=== PATIENT | female | born 1990 | race Caucasian/White ===

== ENCOUNTER 2019-11-12 09:00 | Outpatient (RCR) | payer BC, SELFPAY ==
--- NOTE | 2019-11-12 09:00 | BH.COMM ---
Communication Note - Communication with Client Communication Note: Met with pt to complete intial paperwork. No significant changes since pre-admission screening. Completed C-SSRS with moderate level of risk. Thougths are primarily passive in the past month with no sucidal thoughts, plan, or intent.
--- NOTE | 2019-11-12 09:05 | BH.SGPN.GN ---
Behaviors/Verbalizations/Mental Status: [] Eye contact is good. Motor activity is appropriate. Appearance is casual. Speech is Appropriate. Mood is depressed. Affect is flat. Thoughts are linear and logical. No evidence of psychosis. Reviewed daily check in sheet and pt reports 3/5 for suicidal thoughts and 0/5 for intent. Pt completed [facility] Screening this AM prior to group. Client Response/Progress/Benefit: [] Pt was an active participant in group discussion regarding conflict management. Emotion for today is jumbled. Daily symptom tracker notes 3/5 for anxiety and agitation and 4/5 for hopelessness. This was pt's first group in IOP. Shared with the group that she is attending IOP due to depression and anxiety impacting her functioning. Notes sleeping to escape and staying in bed most of the day due to depression. Shared some struggles this past weekend with ruminations, people pleasing, and avoidance of conflict. Numerous crying spells over the weekend. Poor quality of life for the past several weeks stating I needed to make some big changes in how I cope with life. No progress noted as this was pt's fist day of IOP. Benefited from group support, encouragement, and feedback. Will continue in IOP to maintain safety, prevent decompensation, and increase healthy coping. Narrative Note: []
--- NOTE | 2019-11-12 10:08 | BH.SGPN.GN ---
Behaviors/Verbalizations/Mental Status: []Client alert and oriented, casually dressed and groomed. Eye contact good. Motor activity appropriate. Speech within normal limits. Affect constricted, mood depressed. Thoughts linear, logical, no signs of hallucinations or delusions. Client Response/Progress/Benefit: []Client was an active participant throughout session, contributing to discussion and attentive. When processing quote client stated I literally only focus on the end goal, so only focus on my failure. Client reported when she doesn't recognize the small steps she is taking towards a goal then she believes she has made no progress. Group worked together to define goals and identify the benefits of developing goals which included: gives hope, feeling accomplished, increase self-esteem, accountability, gives direction, and increases motivation. Worked with group to identify barriers to goals which included: negative thinking, predicting negative outcome, avoidance, self-doubt, fear of failure, and lack of energy. Attentive and contributing during education on developing SMART goals. Benefited from increase awareness of goal-setting methods. Will continue in IOP to stabilize mood, increase healthy coping, and prevent decompensation. Narrative Note: []
--- NOTE | 2019-11-12 11:11 | BH.SGPN.GN ---
Behaviors/Verbalizations/Mental Status: []Client alert and oriented, casually dressed and appropriately groomed. Eye contact fair to good. Motor activity appropriate. Speech within normal limits. Affect flat, dysthymic. Thoughts linear, logical, no signs of hallucinations or delusions. Client Response/Progress/Benefit: []Client attentive throughout, engaged in discussion and completing worksheet. Engaged in creating own mental health SMART goal. Client identified goal as: workout four days this week?. Client reported this goal will benefit her by helping client feel better mentally and physically. Client reported this goal is realistic for her because she is used to working out five days a week. Client identified potential barriers to accomplishing goal to include: being lazy, making excuses, low energy, and lack of time. Client reported she will overcome barriers by using consuming caffeine, switching her workout time to mornings, practicing opposite action, and catching herself making excuses. Client seemed to benefit from identifying a SMART goal and coming up with strategies to overcome potential barriers. Client?s first day in IOP. Client to continue IOP to increase healthy coping skills, increase awareness of distorted thoughts, and prevent decompensation. Narrative Note: []
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
[2019-11-14 10:05] VITALS: BP 100/60; PULSE 56; RESP 16; TEMP 36.6
--- NOTE | 2019-11-14 11:15 | BH.SGPN.GN ---
Behaviors/Verbalizations/Mental Status: []Client alert and oriented, casually dressed and groomed. Eye contact good. Motor activity appropriate. Speech within normal limits. Affect constricted, mood depressed and anxious. Thoughts linear, logical, no signs of hallucinations or delusions. Client Response/Progress/Benefit: []Pt engaged participant in session as evidenced by pt listening attentively to others and providing input at times during session. Pt worked with the group to complete the challenge activity. Pt stated a strategy that can help manage stress is having a set plan on how to address a stressor. Pt actively listening during discussion about the 4 A's of managing stress. Identified she will focus on adapting the way she responds to situations and stressors. Pt stated she also wants to work on accepting the things in life that she cannot control. Pt seemed to benefit from increased awareness of the impact of stress on mental health and increasing repertoire of stress management strategies. Pt to continue in IOP to prevent decompensation, increase healthy coping skills, and challenge distorted thoughts. Narrative Note: []
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
--- NOTE | 2019-11-14 13:42 | BH.DR.ITP ---
Initial Treatment Plan - Patient Information Visit Information: ADMISSION DATE: EXPECTED LOS: 4-6 weeks - Problems/Symptoms Problem #1:: Depression Symptom:: sadness, anhedonia, ruminations, low energy, decreased concentration Problem #2:: ANxiety Symptom:: worry, rumination
--- NOTE | 2019-11-14 15:46 | BH.COMM ---
Communication Note - Communication with Client Communication Note: Pt indicated SI as a 3/5 on daily sx track this morning. This therapist met with pt to further assess for risk. Pt indicated that she has been struggling with passive thoughts of hoping something happens to her that would just end things but firmly expressed I don't have the guts to actually do anything to hurt myself. Denies any active plan or intent. Indicates primary stressor impacting her thoughts as worrying about a friend whom she reports it struggling at the moment. Pt is future orients and indicates ability to maintain safety at this time. Reports willlingness to reach out to crisis resources available should she no longer feel able to keep herself safe. Discussed plans to go to work following group and then workout tonight. Pt will meet with her individual therapist in IOP program on Tuesday.
--- NOTE | 2019-11-16 11:33 | BH.MDN_ITS ---
Multi-Disciplinary Note - Note 45-min Individual Time Started:: 09:05 Date: 11/16/19 Purpose of session/treatment goals addressed:: Purpose of session was to assess pt's current symptoms and stressors. Other topics included education about cognitive triangle, increasing positive self-talk and identifying goals for IOP level of care. Eye Contact:: Good Motor Activity:: Appropriate Appearance:: Neat Speech:: Appropriate Mood:: Depressed Affect:: Congruent Thoughts:: Linear, Logical, No evidence of hallucinations/delusions noted Staff Interventions:: Therapist used open ended questions to elicit pt's current symptoms and stressors. Therapist processed recent stressor of pt's friend being arrested for sexual predatory behavior. Therapist provided psychoeducation about cognitive triangle helping pt see connection between thoughts, emotions and beh aviors. Therapist assisted pt with reframing and challenging negative thoughts. Discussed various strategies to help pt increase positive thought patterns. Therapist provided support by using active listening and validating emotions. Client Response:: Pt reported she has been struggling since finding out her best friend was arrested earlier this week in a sexual predator police sting. Pt stated she kind of feels numb to the situation and hasn't really processed it. Pt reported she can't believe that her friend would do something like that. Pt stated she keeps hearing about the story from various people since the event is in the newspaper. Pt shared she is struggling on if she should be supportive to her friend if he reaches out because doesn't want him to feel like he is alone, but also isn't okay with his choices. Through further processing pt recognizes it's important to focus on taking care of herself so she can feel better equiped to manage this stressor. Pt reported she feels comfortable in a depressed state so listened to sad music yesterday which she recognizes maintained her sadness. Pt connected with education about cognitive triangle. Pt recognized her behavior can maintain her depressed symptoms and lead to self-fulfilling prophecy. Pt stated her biggest problem is I hate myself more than anything. Pt reported she struggles with identifying and believe positive statements about herself. Pt admitted she doesn't put into practice her coping skills or saying positive self-statements to herself very often. Pt agreeable to do a self check-in at least 4 times a day in which she will say 5 positives about herself and 3 positives from her day so far. Risks/Concerns:: Pt states passive thoughts of most days, but denies suicidal intention or plan. Pt agreeable to call 911 or go to nearest emergency room if feels unable to maintain safety. Progress Toward Goals/Plan:: No progress observed given it is pt's first week in the program. Session focused on establishing goals for IOP level of care. Pt to continue IOP to decrease negative thoughts, increase healthy coping and prevent decompensation. Time Stopped:: 09:45
--- NOTE | 2019-11-16 20:55 | BH.MTP_ITS ---
Master Treatment Plan - Patient Information Program Physician:: Dr. Chowdhury Primary Therapist:: Mariana Connor, [facility] - Psychiatric Diagnoses Psychiatric Diagnoses:: Major depressive disorder recurrent severe without psychosis; generalized anxiety disorder; Cluster B and avoidant traits Diagnosis Code(s):: F 33.2 - Estimated LOS Estimated LOS (in weeks):: 6 Problem/Goal #1 - Problem/Goal #1 Stated Goal:: Client will reduce depression, feelings of hopelessness, and suicidal ideation due to Major Depressive Disorder through Intensive Outpatient Program. Description of Barriers: Pt's distorted thoughts, negative self-talk, poor self- esteem, passive thoughts of , and limited social support. Functional Impact: Pt endorses decreased energy, decreased concentration and memory and a lethargic mood, worthlessness, hopelessness, crying and sadness. Pt mental health impacts her ability to form social connections. Pt has chronic suicidal thoughts. Depressed symptoms increase pt's focus on the negative which impacts daily enjoyment and increases daily stressors. Goal Relevant Strengths/Supports: Pt is intelligent and verbalizes motivation to get better. - Objectives Objective #1 Stated Objective: Identify 2-3 thoughts or behaviors that reinforce depressive symptoms and replace negative thoughts with more rational thinking. Interventions: Therapist will help client identify distorted thinking that triggers or reinforces depressive state. Therapist will provide client with resources to help guide in replace trigger thoughts or behaviors. Discharge Criteria: Client will have met this goal when she can verbalize at least 2 thoughts or behaviors that reinforce depressive episode, identify rational response to replace those thoughts, and effectively be able to defeat suicidal ideation. Target Date: 12/24/19 Review Date: 12/10/19 Objective #2 Stated Objective: Pt will decrease depressive symptoms AEB pt?s score on the DSM 5 cross-cutting measure and improve pt?s daily functioning. Interventions: Through groups and individual therapy, pt will be provided with education on cognitive distortions, mistaken beliefs, and identifying and combating negative self-talk. Therapist will assist pt with getting back into the activities she once enjoyed as well as increasing healthy coping strategies. Discharge Criteria: Pt will have met this goal when pt?s score on the DSM 5 cross cutting measure for depression has been decreased and per pt?s report daily functioning has improved. Target Date: 12/24/19 Review Date: 12/10/19 Problem/Goal #2 - Problem/Goal #2 Stated Goal:: Stabilize anxiety level while increasing ability to function on daily basis. Description of Barriers: Pt's distorted thoughts, negative self-talk, poor self- esteem, passive thoughts of , and limited social support. Functional Impact: Pt endorses decreased energy, decreased concentration and memory and a lethargic mood, worthlessness, hopelessness, crying and sadness. Pt mental health impacts her ability to form social connections. Pt has chronic suicidal thoughts. Depressed symptoms increase pt's focus on the negative which impacts daily enjoyment and increases daily stressors. Goal Relevant Strengths/Supports: Pt is intelligent and verbalizes motivation to get better. - Objectives Objective #1 Stated Objective: Client will learn and utilize 2-3 healthy coping strategies to manage anxious symptoms. Interventions: Therapist will assist client in learning internal coping strategies to manage anxious symptoms, along with helping client identify triggers. Discharge Criteria: Client will have achieved this goal when can consistently utilize at least 2 healthy coping strategies to manage anxious symptoms. Target Date: 12/24/19 Review Date: 12/10/19 Objective #2 Stated Objective: Pt will decrease anxious symptoms AEB pt?s score on the DSM 5 cross-cutting measure improve pt?s daily functioning. Interventions: Through groups and individual therapy, pt will be provided education about anxiety?s impact on body and common physiological reaction to anxiety. Therapist will teach pt appropriate breathing techniques and build healthy coping skills to manage daily anxieties. Discharge Criteria: Pt will have met this goal when pt?s score on the DSM 5 cross cutting measure for anxiety has been decreased and per pt?s report daily functioning has improved. Target Date: 12/24/19 Review Date: 12/10/19
--- NOTE | 2019-11-16 20:56 | BH.PSA_ITS ---
Source of Information - Presenting Problems/Circumstances Problems, Referral Source, Mental Status, Client: Pt has a history of major depressive disorder and anxiety who was referred by her counselor due to worsening symptoms and limited progress. She describes having decreased energy, decreased concentration and memory and a lethargic mood. She endorses worthlessness, hopelessness, crying and sadness. She describes her mood as indifferent and blah. She has passive thoughts of suicide only. She denies any plan. She denies active SI. Psychiatric Presentation - Psych Issues & Need for Admission Psychiatric Issues:: Hx of depression and anxiety. Past Psychiatric History - MH Treatment Hx Treatment History: Pt first sought counseling when she was 19 years old for a couple of years. Pt has been seeing current counselor for 2 1/2 years. Pt first started taking psychiatric medications in high school. First hospitalization:: none Medication Trials:: Yes ECT Therapy:: No Age of first mental health symptoms: Pt first noticed mental health symptoms in high school. Development & Family of Origin - Childhood Significant Childhood Events: Pt describes her childhood as pretty happy. - Family Who currently lives in your home?: Pt lives with her parents. Describe family composition:: Pt reports healthy relationship with her parents and is not very close with her younger brother. - Family History Family Hx of Psychiatric or AOD Problems: Mom has anxiety. Brother has OCD. Ethnicity - Culture Do you identify yourself with any particular cultural, ethnic background, or community?: No - Sexuality Sexual Orientation: Heterosexual Mental Status - Memory Recent Memory: Fair Remote Memory: Fair - Concentration Concentration: Poor - Eye Contact Eye Contact: Fair - Speech Speech: Articulate - Thought Process Thought Process: Logical, Ruminations Insight: Fair Judgment: Fair Behavior: Anxious - Orientation Orientation: Time, Person, Place, Situation - Appearance Appearance: Appropriate - Mood Mood: Anxious, Depressed - Affect Affect: Constricted Suicide Assessment - Suicidal Ideation Have you ever felt like hurting yourself?: Yes Were you using ETOH/drugs at the time?: No Suicidal Intentional Rating Scale (SIRS): Current suicidal thoughts/No plan/Contracts for safety - Pt has a history of one suicide attempt at age 18 where she overdosed on Vicodin but vomited and did not tell anyone about this. Pt has chronic passive thoughts of wanting to be and believing she would be better off . Pt denies suicidal plan or intention to date. Physician Notification: If Active suicidal thoughts/Will not contract for safety is checked, contact physician and document in the Physician Notification section below. Violent Behavior/Abuse History - Homicidal Ideation Do you have any homicidal thoughts? If so, explain:: No Is there a known potential victim? If yes, who:: No - Abuse Have you ever been abused?: No - Safety Do you ever feel threatened in your home? If yes, describe:: No Adult Social History - Age 20 to Present Describe your current support system:: limited social support. Substance Use - Substance Substance Use Type: Alcohol - Pt states she drinks about 3 drinks a week. - IV Substance Use Do you have a history of IV use?: denies. Education & Occupational Histo - Education What is your level of education?: Bachelor Degree - communications - Occupation List any current or past employment:: Pt states she currently works in [employer] at her current job. Service - Service Have you ever been in the ?: No Legal History - Records Have you had any past legal charges?: No Do you have any current legal charges?: No Have you ever been incarcerated? If yes, describe:: No - Court Orders Have you had any past court orders for psychiatric treatment?: No Do you have a present court order for psychiatric treatment?: No Problem Checklist - Current Problem Areas Problem List: Depressed mood/sad, Anxiety, Inattention, Sleep problems, Additional psychosocial stressors - Pt's negative body image is significant source of stress. Diagnoses - Diagnoses Diagnosis #1:: F 33.2 Major Depressive Disorder, recurrent severe without psychosis Diagnosis #2:: JIM Interpretive Summary - Interpretive Summary Interpretive Summary: Patient is a 29-year-old single female with a history of major depressive disorder and anxiety who was referred by her counselor due to worsening symptoms and limited progress. She describes having decreased energy, decreased concentration and memory and a lethargic mood. She says she noticed she was making suicidal jokes. Last year she had daily headaches for about 7 months and due to extensive medication trials and infusions the headaches have now resolved but the depression remains. She says she feels the depression was triggered by having daily migraine headaches. But now persists and she feels down about her weight. She endorses worthlessness, hopelessness, crying and sadness. She describes her mood as indifferent and blah. Her biggest stress now is work and she is looking for a new job. She is having trouble motivating herself to get things done. She describes herself as having low self-esteem and high expectations of self. Pt endorses anhedonia, increased help, low energy, and inappropriate guilt. She has a history of self- harm the most recent time was 5 years ago and denies any self-harm recently. Pt has passive thoughts of suicide only. She denies any plan. She denies active SI. She denies homicidal ideation, hallucinations, delusions, or any symptoms of robina. She is a worrier by nature and is worried now about her future and about money. She had one panic attack last year and none since. She denies a history of OCD, eating disorder, trauma or PTSD. Treatment Plan Recommendations - Recommendations Guidelines: Special needs identified to be included in the development of an individualized treatment plan regarding past psychiatric history and treatment, developmental events, family relationships/events/culture, past and/or current educational, occupational, social, and residential experience, and legal status. Recommendations:: Pt recommended IOP level of care due to worsening depression, chronic suicidal thoughts, and limited progress with lower level of care.
--- NOTE | 2019-11-19 09:05 | BH.SGPN.GN ---
Behaviors/Verbalizations/Mental Status: []Client alert and oriented, neatly dressed and groomed. Eye contact good. Motor activity appropriate. Speech within normal limits. Affect constricted, mood anxious. Thoughts linear, logical, no signs of hallucinations or delusions. Reviewed client?s symptom tracker, client was 2/5 for thoughts of suicide and 0/5 for intent. This appears to be client's baseline. Future oriented. Client Response/Progress/Benefit: []Client responded well to session, participating and engaged. Client reports feeling happy but anxious about maintenance today. Client shared she had a good weekend and reported I got out of bed before 11 each day. Client acknowledged this is progress because she has been struggling with getting out of bed. Client also read an entire book this weekend and went to a musical. Client had not been able to focus or find enjoyment in things, so she is happy about this mental health win. Client's stressor today is that she did not workout like she wanted to this weekend. Client was encouraged to practice self-compassion as she still accomplished many goals this weekend. Appeared to benefit from reflecting on her gains and practicing self-compassion. Will continue IOP tx to prevent decompensation, challenge distortions, and improve overall functioning. Narrative Note: []
--- NOTE | 2019-11-19 11:18 | BH.SGPN.GN ---
Behaviors/Verbalizations/Mental Status: []Client alert and oriented, casually dressed and groomed. Eye contact good. Motor activity appropriate. Speech within normal limits. Affect congruent, mood anxious, depressed. Thoughts linear, logical, no signs of hallucinations or delusions. Client Response/Progress/Benefit: []Client?engaged during session AEB client providing contributions throughout group session, giving feedback to fellow participants, and engaging in thought challenging activity. Client acknowledged the importance of needing to have awareness and put forth the effort to challenge, reframe, and replace distorted thought patterns. Shared that she has been working with her outpatient therapist on this and that it has taken a lot of practice to make progress. Shared she continues to struggle at times. Client worked cooperatively with group to challenge example distorted thought and was attentive in learning strategies to combat distortions. Client reported connecting with distortion of emotional reasoning and personalization most and identified a distorted thought she will practice reframing. Client seemed to benefit from increased awareness of cognitive distortions and practicing reframing distorted thoughts. Client to continue IOP level of care to challenge negative thoughts, continue use of healthy coping and prevent decompensation. Narrative Note: []
--- NOTE | 2019-11-21 09:10 | BH.SGPN.GN ---
Behaviors/Verbalizations/Mental Status: [] Eye contact is good. Motor activity is appropriate. Appearance is casual. Speech is Appropriate. Mood is depressed. Affect is flat. Thoughts are linear and logical. No evidence of psychosis. Reviewed daily check in sheet and pt reports 2/5 for suicidal thoughts and 0/5 for intent. Has been baseline for pt since entering IOP Client Response/Progress/Benefit: [] Pt spoke when prompted. She choose not to share today in group stating I'm struggling with over-analyzing. Group was support and she elaborated a little more however not much. Benefited from group support and encouragement. Will continue in IOP to maintain safety, prevent decompensation, increase healthy coping, and increase functioning. Daily symptom tracker notes 3/5 for anxiety, 4/5 for hopelessness, and 2/5 for agitation. Narrative Note: []
--- NOTE | 2019-11-21 10:10 | BH.SGPN.GN ---
Addendum entered and electronically signed by Dee Dyer LSW 11/22/19 08:22: Pt was a semi-active participant in activity as evidenced by pt providing some input throughout, though mostly remained passive. She attentively listened to others. Group worked together to come up with common negative forces in their lives which can hold them back from growth. Negative forces included: mental illness, negative thoughts, other people?s opinion and behaviors, not managing emotions, and poor choices. Group then worked together to identify common positive forces which help us grow. Theses included: Healthy coping skills, positive support, self-care, positive self-talk and opposite action, and weighing pros/cons of choices. Pt reported she believes personal growth is a choice because we decide whether to do things that will result in growth such as set boundaries or challenge thoughts. Pt was attentive during psychoeducation on the importance of utilizing many aspects of positive forces to help one grow. Benefited from group with increased insight and awareness on the impact of negative and positive forces on mental wellness. Recommended continued tx to reduce mental health sx severity, increase positive change behaviors, and prevent decompensation. Original Note: Behaviors/Verbalizations/Mental Status: []Client alert and oriented, casually dressed and groomed. Eye contact good. Motor activity appropriate. Speech within normal limits. Affect congruent, mood depressed and anxious. Thoughts linear, logical, no signs of hallucinations or delusions. Client Response/Progress/Benefit: [] Narrative Note: []
--- NOTE | 2019-11-21 11:20 | BH.SGPN.GN ---
Behaviors/Verbalizations/Mental Status: []Client alert and oriented, casually dressed and groomed. Eye contact fair. Motor activity appropriate. Speech within normal limits. Affect flat, mood agitated and depressed. Thoughts linear, logical, no signs of hallucinations or delusions. Client Response/Progress/Benefit: []Client passive participant AEB pt providing limited input during discussion and when did share input it tended to be focused on the negative. Client completed worksheet identifying her positive and negative forces in life. Client chose not to share her negative and positive forces with the group. Client stated she will focus on decreasing negative view of life by keep track of positive moments throughout her day instead of just focusing on what isn't going well. Client progress could be hindered if pt continues to only focus on negative and not utilizing skills to improve mood when feeling agitated and apathetic. Client to continue IOP level of care to increase healthy coping, challenge negative thoughts and prevent decompensation. Narrative Note: []
--- NOTE | 2019-11-22 09:07 | BH.SGPN.GN ---
Behaviors/Verbalizations/Mental Status: []Eye contact is good. Motor activity is appropriate. Appearance is casual, grooming appropriate. Speech is Appropriate rate and soft tone. Mood is dysthymic. Affect is constricted. Thoughts are linear and logical. No evidence of psychosis. Reviewed daily check in sheet and pt indicates a 2/5, with 5 being severe, for suicidal thoughts and a 0/5 for suicidal intention. Pt's baseline is a 2/5 for suicidal ideation. Pt does not present as imminent risk to harm self or others. Client Response/Progress/Benefit: []Client responded well to session as evidenced by her list intentionally to others and openly sharing thoughts and feelings. Client identified current emotion as hopeful. Client identified mental health positive as not flipping out at work yesterday when was having difficulty with several projects. Client stated she used self-talk to help her stay calm. client reported another mental health positive was attending IOP yesterday and getting through the rest of the day despite feeling apathetic and easily agitated. Client identified current stressor is her health because her migraines have starting to come back and she doesn't understand why. Client progress is variable, her mood is often determined by her external environment. Client to continue IOP to increase consistent use of healthy coping, increase positive thought patterns, and prevent decompensation. Narrative Note: []
--- NOTE | 2019-11-22 10:12 | BH.SGPN.GN ---
Behaviors/Verbalizations/Mental Status: []Client alert and oriented, casually dressed and groomed. Eye contact good. Motor activity appropriate. Speech within normal limits. Affect congruent, mood depressed and anxious. Thoughts linear, logical, no signs of hallucinations or delusions. Client Response/Progress/Benefit: []Pt active participant as shown by contribution to discussion and increased ability to provide insight to group. Pt shared that self-care is important but can be difficult to prioritize when we put other?s needs first or fear being viewed as selfish. Pt helped the group discuss benefits of self-care and expressed connecting to idea of self-care as preventative. Benefits included; improved relationships, maintaining stability, less stress, better perspective, and improved mood. Pt participated in the discussion of the common myths about self-care including self-care is selfish, always fun, too much effort and time, and we don?t deserve it. Client participated in the discussion on debunking of these myths, and took on an active role during discussion. Group stated that everyone is worthy of self-care and by practicing self-care daily, it can prevent avoidable additional stressors. Client seemed to benefit from increased awareness of the importance of self-care and challenging common myths that prevent clients from practicing self-care. Client showing variable progress as shown by client?s report of insight into what helps and hinders mental health progress, but struggles with application of skills identified. Will continue IOP tx to promote gains, further improve healthy skill application, as well as prevent decompensation. Narrative Note: []
--- NOTE | 2019-11-22 11:15 | BH.SGPN.GN ---
Behaviors/Verbalizations/Mental Status: []Client alert and oriented, neatly dressed and groomed. Eye contact good. Motor activity appropriate. Speech within normal limits. Affect constricted, mood anxious. Thoughts linear, logical, no signs of hallucinations or delusions. Client Response/Progress/Benefit: []Client receptive of session, actively listening and contributing to discussion. Participated as the group further processed the activity and connected that maintaining self-care requires balancing life stressors and making oneself a priority. Client shared it is important to remember that making time for self-care may bother others ?but that?s not our responsibility.? Willing to complete worksheet activity and helped the group identify self-care activities. Client completed self-assessment activity on the different areas of self-care and was able to identify current practices she uses and identify areas she can improve upon. Client reported she can improve her spiritual self-care area. Client set a goal to improve in the area of spiritual self-care. Client?s goal is to try out some meditation and practicing calming strategies. Client shared ?my mind is always racing, so I need to teach it to be calm.? Client appeared to benefit from increasing awareness of how she can improve her self-care balance. Progress noted as shown by client?s increased self-awareness and understanding of negative thinking. Will continue IOP tx to combat dichotomous thinking and reduce depressive symptoms. Narrative Note: []
--- NOTE | 2019-11-22 20:51 | BH.MDN ---
Multi-Disciplinary Note - Note 60-min Individual Date: 11/22/19
--- NOTE | 2019-11-26 09:04 | BH.SGPN.GN ---
Behaviors/Verbalizations/Mental Status: []Eye contact is good. Motor activity is appropriate. Appearance is casual. Speech is WNL. Mood is anxious, dysthymic. Affect is congruent. Thoughts are linear and logical. No evidence of psychosis. Reviewed daily check in sheet and reports 1/5 for suicidal ideations, denies intent. This is consistent with pt baseline. Client Response/Progress/Benefit: []Pt responded well to session, engaged throughout and willing to process with group. Reports emotion for the day as ?anxious? and indicated that this is due to struggling to differentiate between self-care and avoidance. Pt identified current mental health wins as being able to reframe a setback and learn from it rather than ruminate on where she felt she had failed. Shared practicing applying components of self-compassion. Pt noted that reflecting upon knowing when she needs a break vs. when she is beginning to isolate is her ongoing stressor. Open to discussion on asking herself why she desires to do the behavior as a means for differentiating. Additional win identified as challenging negative thoughts about not working out this morning and instead pt told herself that she would be able to do so after work this afternoon. Benefited from support of the group. Progress noted in pt self-report of improved ability to engage in self-care, though continues to report distorted thinking patterns which impacts progress. Recommended continued IOP tx to maintain gains, promote ongoing tx goal progress and implementation of thought challenging, and reduce overall mental health sx severity. Narrative Note: []
--- NOTE | 2019-11-26 10:15 | BH.SGPN.GN ---
Behaviors/Verbalizations/Mental Status: []Eye contact is good. Motor activity is appropriate. Appearance is casual. Speech is Appropriate. Mood is dysthymic. Affect is constricted. Thoughts are linear and logical. No evidence of psychosis. Client Response/Progress/Benefit: []Pt was an active participant AEB pt providing input during discussion, engaged in activity and listened attentively to others. Pt connected with quote that it's easier to stay with what's comfortable even when know it's not healthy. Pt stated an example of something that would be hard to change is moving jobs. Worked with peers to identify and define pitfalls in mental health. Attentive on psycho-education on the impact of how one tr with or manages pitfalls in regards to mental health. Group worked together to identify what keeps us stuck or vulnerable to pitfalls which included; loss of motivation, fear of unknown, anxiety, unhealthy coping, self-sabotage, self-fulfilling prophecy, impatience, and self-doubt. Pt stated self-fulfilling prophecy is a pitfall that can keep her stuck. Pt gave example that if she tells herself she is going to fail it typically leads her to failing which reinforces negative thought that she was going to fail. Benefited from increased awareness on the impact that pitfalls can have on mental health. Narrative Note: []
--- NOTE | 2019-11-26 11:16 | BH.SGPN.GN ---
Behaviors/Verbalizations/Mental Status: []Client alert and oriented, neat appearance. Eye contact good. Motor activity appropriate. Speech within normal limits. Affect constricted, mood anxious. Thoughts linear, logical, no signs of hallucinations or delusions. Client Response/Progress/Benefit: []Client receptive of session, engaged throughout AEB client taking notes and participating in discussion. Processed activity with group and connected it to overcoming personal pitfalls in life. Client completed a worksheet where she identified personal pitfalls impacting mental health progress. Identified pitfalls as: unjustified guilt, saying yes when she means no, doing things for others but not herself, pride, and difficulty asking for help. Client shared I have a pride problem...I think I should be able to do everything alone.Client recognized that with awareness and use of healthy coping skills, it is possible to prevent or better manage pitfalls. Attentive and contributing during psychoeducation on strategies to overcome pitfalls. Client stated she will work on preventing pitfalls by practicing acceptance of the discomfort of asking for help and reminding herself that it's okay . Benefited from identifying personal pitfalls and strategies to overcome these pitfalls.Progress noted in client's increased receptiveness to coping skills and challenging her negative thoughts. Will continue IOP tx as client continues to struggle with unrealistic expectations and mood instability. Narrative Note: []
--- NOTE | 2019-11-28 09:04 | BH.SGPN.GN ---
Behaviors/Verbalizations/Mental Status: []Pt alert and orient x3. Eye contact good. Motor activity is appropriate. Appearance is casual. Speech is Appropriate. Mood is dysthymic. Affect is congruent. Thoughts are linear and logical. No evidence of psychosis. Reviewed daily check in sheet and no reports of suicidal ideations or intent. Client Response/Progress/Benefit: []Pt responded well to session, engaged throughout discussion and willing to process with group. Reports emotion for the day as ?content? and indicated that this is due to beginning to see improvement in her overall mood. Pt identified current mental health win as being able to go the entire previous date and this morning without experiencing any passive thoughts of . Attributes this to increased application of positive self-talk. Additional win identified as doing well to remind herself of the positives within the workplace in order to reduce negative thinking patterns related to her job. Benefited from support of the group and identifying areas in which she has made improvement. Current stressor continues to be trying to stay positive within her work environment. Progress noted in pt self-report of improved mood and increased use of self-talk skills. Recommended continued IOP tx to maintain gains, promote ongoing tx goal progress and implementation of thought challenging, and reduce overall mental health sx severity. Narrative Note: []
--- NOTE | 2019-11-28 10:18 | BH.SGPN.GN ---
Behaviors/Verbalizations/Mental Status: []Client alert and oriented, neatly dressed and groomed. Eye contact good. Motor activity appropriate. Speech within normal limits. Affect congruent, mood euthymic. Thoughts linear, logical, no signs of hallucinations or delusions. Client Response/Progress/Benefit: []Client was an active participant AEB engagement in group activity and providing good input during discussion. Client worked with group to define resilience, sharing that to her being resilient means adapting and having flexible thinking. Client stated, ?it takes a lot of strength to shift your thinking.? Client able to make connections between activity and barriers/supports to the development of a resilient lifestyle. Client agreed with peers that one can learn to become more resilient throughout life and reported ?resisting change is ignorant.? Client able to work with group to discuss benefits of resilience on mental health which included; better management of mental health symptoms, increased healthy coping skills, increased confidence, less fear of stressors, and personal growth. Progress noted as shown by client?s report of reduced suicidal ideations since admission and increased ability to challenge negative thoughts. Recommended continued IOP tx to promote healthy change behaviors and further decrease negative thinking that reinforces depression and anxiety. Narrative Note: []
--- NOTE | 2019-11-28 12:00 | BH.COMM ---
Communication Note - Communication with Client Communication Note: Client reports hand tremors, this nurse discussed same with client. Client states hand tremors started after she started taking her Wellbutrin which was prescribed 2 weeks ago. 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 Client denies caffiene use. Discussed hand tremors with Dr. Chowdhury. Dr. Chowdhury states client can stop taking Wellbutrin if tremors bothersome and she will see her next week to discuss. Client states she is going to stop taking Wellbutrin.
--- NOTE | 2019-11-29 09:05 | BH.SGPN.GN ---
Behaviors/Verbalizations/Mental Status: [] Eye contact is good. Motor activity is appropriate. Appearance is neat. Speech is Appropriate. Mood is depressed. Affect is flat. Thoughts are linear and logical. No evidence of psychosis. Reviewed daily check in sheet and pt reports 1/5 for suicidal thoughts and 0/5 for intent. This is below baseline for pt. Client Response/Progress/Benefit: [] Pt was an active participant in group discussion. Emotion for today is tired. Daily symptom tracker notes 4/5 for anxiety, 3/5 for panic/hopelessness, and 2/5 for agitation. Shared that she was emotionally exhausted yesterday. Spending a great deal of time asking herself why she feels depressed noting that she had a good childhood, no trauma, and for the most part her life is OK. Discussed how she has a strong desire and need to find out the reasons for her depression. Group provided feedback and discussed radical acceptance giving examples of situations that we may never find the cause or reason for. Pt able to identify this need as an obstacle and group provided feedback on strategies on radical acceptance. Progress noted. Benefited from group support, encouragement, and feedback. Will continue in IOP to maintain safety, increase healthy coping, and prevent decompensation. Narrative Note: []
--- NOTE | 2019-11-29 10:06 | BH.SGPN.GN ---
Behaviors/Verbalizations/Mental Status: []Client alert and oriented, casually dressed and groomed. Eye contact good. Motor activity appropriate. Speech within normal limits. Affect congruent, mood anxious, dysthymic. Thoughts linear, logical, no signs of hallucinations or delusions. Client Response/Progress/Benefit: []Client responded well to session, attentive and providing input to discussion. Group identified the benefits to setting boundaries as well as the consequences of not setting healthy boundaries. Client shared she knows setting boundaries is important but she struggles with compromising her own boundaries when asked by others. Provided an example of continuing to give money after setting a boundary about doing so. Participated in the discussion of benefits of setting boundaries which included; increased confidence, better relationships, needs being met, safety, and preventing burnout. Group identified the barriers that keep one from setting healthy boundaries which included fear of others reaction, low self-esteem, past experiences, lack of awareness, and lack of communication. Client engaged during discussion of the different types of boundaries and able to identify the benefits of each. Client shared she struggles to set material and time boundaries which leads to feeling overwhelmed and taken advantage of. Client seemed to benefit from increased awareness of how poor boundaries can negatively impact mental health. Progress noted as client has been able to share increased insight into her own mental health and reports reduced suicidal ideation as well. Will continue IOP tx to prevent decompensation, improve emotional regulation, and reduce mental health sx. Narrative Note: []
--- NOTE | 2019-11-29 11:11 | BH.SGPN.GN ---
Behaviors/Verbalizations/Mental Status: []Client alert and oriented, casual dress, hygiene appropriate. Eye contact good. Motor activity appropriate. Speech within normal limits. Affect congruent, mood dysthymic, anxious. Thoughts linear, logical, no signs of hallucinations or delusions. Client Response/Progress/Benefit: []Pt responded well to session, active participant and willing to provide insight throughout. Pt did well to engage in the boundary self-assessment activity and worked with group to further process. Pt discussed that she often struggles with feeling able to say ?no? to others on a consistent basis and often gives in to avoid conflict when pushed. Noted that she tends to prioritize avoiding conflict over setting boundaries despite knowing that it is going to impact her mental health. Identified she would like to improve her ability to set healthy time boundaries by trying to implement concept of ?habit stacking? as well as practice saying ?no? to others when needing to prioritize herself. Appeared to benefit from group discussion on strategies for further improving personal boundaries. Progress noted in pt ability to identify impact of current boundaries on mental health progress and relationships. Pt to continue IOP tx to maintain stability, decrease mental health sx severity, and continue to promote healthy change behaviors. Narrative Note: []
--- NOTE | 2019-12-03 11:20 | BH.SGPN.GN ---
Behaviors/Verbalizations/Mental Status: []Client alert and oriented, neatly dressed and groomed. Eye contact good. Motor activity appropriate. Speech within normal limits. Affect flat, mood depressed, irritable. Thoughts linear, logical, no signs of hallucinations or delusions. Client Response/Progress/Benefit: []Client responded well to session, quiet, but participating when prompted. Group discussed the mental health benefits of recognizing strengths which included; improved self-esteem, better coping skills, and improved mood. Client shared she struggles with identifying her strengths at times because some hurt my mental health. Client gave the example of how being forgiving has burned me too many times. Receptive to feedback from peers on boundary setting and self-love. Client able to identify personal strengths she possesses which included; sense of humor, being adventurous, love of learning, and empathy. Client stated her strengths help her cope more effectively and practice self-care. Group discussed strategies to build and improve strengths which included; practicing self-compassion, affirmations, applying strengths or ?use them,? self-care, and keeping track of wins. Appeared to benefit from recognizing personal strengths and identifying strategies to improve strengths. Progress noted as client has been reporting reduced isolation, but she continues to struggle with negative thinking that reinforces depression. Will continue IOP tx to reduce negative thinking and improve mood stability. Narrative Note: []
--- NOTE | 2019-12-05 09:03 | BH.SGPN.GN ---
Behaviors/Verbalizations/Mental Status: []Pt eye contact fair, casually dressed, motor activity appropriate, speech normal rate and tone, mood depressed, flat affect, thoughts linear and intact, no evidence of delusions or hallucinations. Reviewed client?s symptom tracker pt indicated a 1/5, with 5 being severe, for suicidal thoughts and a 0/5 for suicidal intention. Pt's baseline is a 1/5 for suicidal thoughts. Pt does not appear to be at imminent risk to harm self or others. Client Response/Progress/Benefit: []Pt listened attentively to others, needed encouragement to share own thoughts and feelings. Pt struggled with identifying any mental health positives. Pt discounted getting to IOP consistently as a positive because that's easy. 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 Pt reported current stressor is life. With coaching pt identified more specifically her health and medical bills. Pt progress stagnant as evidenced by pt continuing to report depressed symptoms, negative thinking and not consistently applying coping skills and strategies. pt recognizes negative mindset reinforces depressed state, but doesn't apply thought challenge techniques consistently. Pt to continue IOP to increase consistent application of healthy coping skills, challenge negative thoughts and prevent decompensation. Narrative Note: []
--- NOTE | 2019-12-05 10:10 | BH.SGPN.GN ---
Behaviors/Verbalizations/Mental Status: []Client alert and oriented, casually dressed and groomed. Eye contact good. Motor activity appropriate. Speech within normal limits. Affect constricted, mood depressed, anxious. Thoughts linear, logical, no signs of hallucinations or delusions. Client Response/Progress/Benefit: []Client a passive participant during group AEB client contributing little input to discussion, though able to make connections throughout. Client agreed with group that it is important to have a variety of social supports. Client listened as group brainstorm potential consequences of not having a support system and barriers to developing social supports, which included: feeling like a burden, not using internal skills, procrastinating, minimizing sx, and poor communication. Group identified benefits of social support as increased confidence, having someone to talk to, reducing overall responsibilities, less stress, and improved relationships. Appeared to benefit from gaining awareness of barriers that keep people from seeking social support as well as identifying the benefits of increasing support. Client progress variable due to inconsistent skill application. Recommended continued IOP tx to prevent decompensation, continue to promote healthy skill application, and improve healthy social support outlets. Narrative Note: []
--- NOTE | 2019-12-05 11:10 | BH.SGPN.GN ---
Behaviors/Verbalizations/Mental Status: []Client alert and oriented, neatly dressed and groomed. Eye contact good. Motor activity appropriate. Speech within normal limits. Affect constricted, mood depressed. Thoughts linear, logical, no signs of hallucinations or delusions. Client Response/Progress/Benefit: []client active participant AEB client contributing to discussion and listened attentively to others. Client worked with the group to make connections between barriers faced in the challenge activity and strategies for managing these barriers with utilizing social supports in daily life. Client reported using specific communication helped her group be successful. Client participated in small group discussion about the different types of support and benefits different types of support can provide. Client identified she would like to increase her spiritual supports. Client shared this will help client feel less stressed and decrease her racing thoughts. Client identified steps she can take to improve this support to be meditating throughout the week and spending more time outdoors. Client reported she meditated before bed the other day and it helped her fall asleep while quieting her mind. Client seemed to benefit from identifying a type of support she would like to improve upon and identifying small steps to take. Progress noted as shown by client's improved participation today, but she continues to struggle with challenging distortions. Will continue IOP tx to reduce self-sabotaging behaviors, improve self-talk, and reduce depression. Narrative Note: []
--- NOTE | 2019-12-05 11:22 | PCM.BH.PN_ITS ---
Progress Note Progress Note: History of Present Illness/Interim History: [] Patient is a 29-year-old single female with a history of depression and anxiety who is seen in follow- up at the [facility] behavioral health IOP program. The patient had been started on Wellbutrin a few weeks ago and this gave her significant tremors so this medicine was discontinued around November 28, 2019. She states today that her mood remains depressed and possibly a little more depressed than it was a few weeks ago. She is still having decreased energy, decreased concentration, worthlessness, crying and sadness. She is trying to keep a regular wake hours now so she is not sleeping as much during the day as she was before. She denies any urges to any type of self-harm. She does continue to have passive thoughts with of suicide which are fleeting and not active. She has no plan. She denies any homicidal ideation, hallucinations, delusions or any symptoms of robina. She continues to worry about her future and about money. Current Psychiatric Medications: [] Paxil 20 mg p.o. daily (for the past 9 years at same dose); Wellbutrin XL 150 mg taken for 1 or 2 days but discontinued November 28. Mental Status Examination: [] Patient is a 29-year-old single female who appears normal for stated age. She is casually dressed and groomed with good hygiene. She has good eye contact and speech is normal rate and rhythm with no pressure. She has no psychomotor agitation or retardation. She has depressed mood and somewhat flat and constricted affect. Thought process is goal-directed and organized. Thought content: There is evidence of passive suicidal ideation. There is no evidence of a plan or active suicidal ideation. No evidence of homicidal ideation, hallucinations or delusions. Judgment is intact. Insight: Some present. Impulsivity: Low to moderate. Diagnoses: [] Standish I: [] Major depressive disorder recurrent severe without psychosis; generalized anxiety disorder Standish II: [] Cluster B and avoidant traits Standish III: [] Migraine headaches Standish IV:[]] Work and primary support issues Plan: [] Patient will continue the IOP program as the structure, support, education, group and individual therapy will hopefully prevent worsening of the patient's symptoms which might require hospitalization. The risk, options, possible complications of medications were discussed with the patient and she understands and accepts these. Discussed again that she should use control and not become while taking valproic acid for her headaches. Patient was given several options for her medications. Option 1 was to increase the Paxil. Option 2 was to wean and change the Paxil over to Zoloft. Zoloft has somewhat less side effects than Paxil and is safer to use in reproductive age women in case they become or want to breast-feed in the future. The patient agreed to start Zoloft 50 mg p.o. daily. Prescription was given for this medication. She is to take a half a tablet the first few days and if she tolerates that then 1 p.o. daily. The same day she starts the Zoloft she will decrease her Paxil to 1/2 tablet or 10 mg p.o. daily. She will stay on 10 mg of Paxil until high see her in several weeks. She understands the Paxil can sometimes be difficult to get off of and we discussed the withdrawal symptoms. She has been on it for 9 years so we will take at least several weeks to a month to wean her off. I will see the patient in 2 weeks or earlier if needed.
--- NOTE | 2019-12-05 14:20 | BH.MDN ---
Multi-Disciplinary Note - Note 45-min Individual Time Started:: 08:05 Date: 12/05/19 Purpose of session/treatment goals addressed:: Purpose of session was to assess pt's current symptoms and stressors. Other topics included: challenging distorted thoughts and discussing consequences of not using skills. Eye Contact:: Fair Motor Activity:: Appropriate Appearance:: Casual Speech:: Appropriate Mood:: Depressed Affect:: Constricted Thoughts:: Linear, Logical, No evidence of hallucinations/delusions noted Staff Interventions:: Therapist used open ended questions to elicit pt's current symptoms and stressors. Therapist discussed strategies with pt to decrease overanalyzing situations and thoughts. Therapist assisted pt with recognizing and challenging distorted thought patterns. Therapist gently challenged pt's inconsistent use of healthy coping skills. Helped pt connect impact lack of action has on progress. Provided support by using active listening and validating emotions. Client Response:: Pt reported I think I am too self-aware. Pt explained she often gets stuck in the process of overanalyzing her emotions and thoughts. Pt stated if she doesn't feel a certain emotion that she believes she should feel for the situation then she spends time analyzing why. Pt connected with therapist helping her see overanaylzing isn't self-awareness and tends to result in nothing positive. With help pt stated she can see the importance of stopping herself from overanalyzing. Pt reported she hasn't been doing well in the past few days because no matter what I do no matter what I try life will kick me down. Pt stated she recognizes the thought is distorted, but also has sitautions that prove that distorted thought to be true. Pt connected that if she continues to think that way she will not put forth effort to see anything that disproves that thought. Pt responded well to being challenged by therapist that if maintains negative perspective all she will see is negative. Pt stated historically she has struggled with consistently applying her thought challenge skills. Pt agreeable for the next week to track positive moments from her day. Risks/Concerns:: Pt reports passive thoughts of suicide, but denies suicidal plan or intention to date. future focused. agreeable to go to nearest emergency room or call 911 if unable to maintain safety. Progress Toward Goals/Plan:: Decompensation of symptoms as evidenced by pt reporting depressed symptoms, apathy, and increased negative thoughts. pt admits to not utilizing skills on a consistent basis which is negatively impacting progress. Pt to continue IOP to increase use of healthy coping skills, increase consistent application of thought challenge strategies and prevent decompensation. Time Stopped:: 08:55
--- NOTE | 2019-12-07 09:00 | BH.SGPN.GN ---
Behaviors/Verbalizations/Mental Status: [] Eye contact is good. Motor activity is appropriate. Appearance is casual. Speech is Appropriate. Mood is depressed. Affect is flat. Thoughts are linear and logical. No evidence of psychosis. Reviewed daily check in sheet and pt reports 1/5 for suicidal thoughts and 0/5 for intent. This is baseline for pt. Client Response/Progress/Benefit: [] Pt participated when prompted. Attentive. Shared that she had a rough week ... mental health delaney. States life keeps beating me down. Daily symptoms tracker notes 4/5 for anxiety and hopelessness and 2/5 for panic and agitation. Shared with the group a positive which included having an interview for a new job however is re-framing this as a negative stating that they will not pay more than her current job and that the interview is over the phone. Has a desire to ask during the interview if the salary is negotiable however states I most likely won't. States she will regret it if she doesn't. Group provided feedback and challenged some of her negative thoughts and cognitive distortions however she was not receptive. Not utilizing skills and continues to ruminate and dwell on negative of all situations (even positive ones). No progress noted. Did not benefit from group. Will continue in IOP to maintain safety, increase health coping skills, and prevent decompensation. Narrative Note: []
--- NOTE | 2019-12-07 10:13 | BH.SGPN.GN ---
Behaviors/Verbalizations/Mental Status: []Client alert and oriented, casually dressed and groomed. Eye contact good. Motor activity appropriate. Speech within normal limits. Affect constricted, mood dysthymic. Thoughts linear, logical, no signs of hallucinations or delusions. Client Response/Progress/Benefit: []Client was a semi-active participant AEB providing some input throughout session and listening attentively to peers. The group discussed the quote and how the emotion anger is not good or bad, but one can respond to anger in healthy or harmful ways. Client worked with the group to define anger and its causes, as well as the internal and external impacts of anger. Group identified potential consequences of unhealthy management of anger to include: losing relationships, guilt, decreased self-esteem, lashing out, and worsening mental health symptoms. Client identified underlying factors of own anger which included: feeling disrespected or invalidated, feeling betrayed, feeling lost, feeling injustice has occurred, confusion, and feeling hungry. Client stated short responses, minor ?freak out?, thinking about revenge, confusion, and cursing as responses she has when feeling angry. Benefited from group by increasing awareness of the negative impacts of unmanaged anger and underlying factors that contribute to anger. Progress noted as client reports increased thought challenging and reduced depression, though continues to struggle in this area. Will continue IOP tx to prevent decompensation, promote healthy change behaviors, and improve mood stability. Narrative Note: []
--- NOTE | 2019-12-07 11:15 | BH.SGPN.GN ---
Behaviors/Verbalizations/Mental Status: []Pt eye contact good, casually dressed, motor activity appropriate, speech normal rate and tone, mood depressed, constricted affect, thoughts linear and intact, no evidence of delusions or hallucinations. Client Response/Progress/Benefit: []Pt engaged participant throughout group AEB pt providing input throughout discussion and engaged in activity. Pt did well to challenge herself to complete the group activity and incorporate anger management/emotion regulation skills in order to do so. Pt worked with the group to identify the various barriers faced in the activity as well as skills used to successfully complete the task at hand without becoming dysregulated or uncontrollably angry. Group brainstormed with group healthy coping skills to help manage anger which included: mindfulness, crying, walking, exercise, talking to support and petting an animal. She appeared to benefit from brainstorming with the group potential strategies to manage anger in healthy ways. Pt identified plans to work on using venting and using laughter to help manage anger appropriately. Recommended continued IOP to increase healthy coping, challenge distorted thoughts, and prevent decompensation. Narrative Note: []
== END 2019-12-08 23:59 ==
LOC: BHIOP 09:00
PROVIDERS: PCP Preventive Medicine Occupational Medicine; Referring Provider Psychiatry & Neurology Psychiatry; Visit Provider Psychiatry & Neurology Psychiatry
DX: F33.2 Major depressive disorder, recurrent severe without psychotic features (principal); F41.1 Generalized anxiety disorder; G43.909 Migraine, unspecified, not intractable, without status migrainosus; Z79.899 Other long term (current) drug therapy
CPT/HCPCS: H0035; 90834; 90837; 90853

== ENCOUNTER 2019-12-10 09:00 | Outpatient (RCR) | payer BC, SELFPAY ==
[2019-12-09 01:00] VITALS: BP 100/60; PULSE 56; RESP 16; TEMP 36.6
--- NOTE | 2019-12-10 09:00 | BH.SGPN.GN ---
Behaviors/Verbalizations/Mental Status: [] Eye contact is good. Motor activity is appropriate. Appearance is casual. Speech is Appropriate. Mood is depressed. Affect is flat. Thoughts are linear and logical. No evidence of psychosis. Reviewed daily check in sheet and pt reports 1/5 for suicidal thoughts and 0/5 for intent. This is pt's baseline Client Response/Progress/Benefit: [] Pt participated at times. Provided appropriate feedback. Shared with the group that she had some positives and setbacks over the weekend. Was more tired than usual on Tuesday and felt like she slept the day away. However on Tuesday was motivated and got a great deal accomplished. Talked at length and asked group's opinion on her struggles with pride and inability to ask for help. Appeared receptive to group's feedback. She went over some examples where she struggles with asking for help. Discussed how this impacts her mental health and obstacles to asking for help. Benefited from group feedback, encouragement, and support. Will continue in IOP to maintain safety, prevent decompensation, and decrease depression. Narrative Note: []
--- NOTE | 2019-12-10 10:20 | BH.SGPN.GN ---
Participated throughout group discussion, providing some input and listening actively. Engaged during psychoeducation portion reviewing fixed mindset. Reported relating to examples of fixed mindset thoughts and provided personal examples. Pt worked with group to identify how a fixed mindset can impact our mental health which included: decreased hope, giving up when faced with a setback, not asking for help, low self-esteem, and isolation/avoidance. Pt identified one fixed thought she has as ?It doesn?t matter how hard I try, I will fail. Recognized that this fixed thought continues to maintain depression and keeps her from making progress towards goals. Benefited from group by increasing awareness of how one's mindset impacts mental health. Pt to continue IOP level of care to increase utilization of healthy coping skills, challenge distorted thoughts, and prevent decompensation. Behaviors/Verbalizations/Mental Status: []Eye contact is good. Motor activity is appropriate. Appearance is casual. Speech is Appropriate. Mood is dysthymic. Affect is constricted. Thoughts are linear and logical. No evidence of psychosis. Client Response/Progress/Benefit: [] Narrative Note: []
--- NOTE | 2019-12-10 11:25 | BH.SGPN.GN ---
Behaviors/Verbalizations/Mental Status: []Pt eye contact good, casually dressed, motor activity appropriate, speech normal rate and tone, mood dysthymic, congruent affect, thoughts linear and intact, no evidence of delusions or hallucinations. Client Response/Progress/Benefit: []Client engaged during discussion and listened attentively to peers. Client struggled with apply cognitive restructuring to reframe previously identified fixed thoughts, transforming her fixed thought from previous group to a thought of ?I can't predict the future.? Client receptive from feedback and help from group. With help client able to identify growth thought to be There will be stressors in life, but if I use my skills I will be better able to manage the stress. Client shared her fixed thoughts have maintained a depressed state. Client participated as the group brainstormed strategies to promote growth-mindset thinking. Benefitted from discussing benefits of growth mindset and brainstorming strategies for prompting growth-mindset. Will continue IOP tx to increase healthy coping skills, continue use of thought challenge techniques and prevent decompensation. Narrative Note: []
--- NOTE | 2019-12-12 09:05 | BH.SGPN.GN ---
Behaviors/Verbalizations/Mental Status: [] Eye contact is good. Motor activity is appropriate. Appearance is neat. Speech is Appropriate. Mood is depressed. Affect is flat. Thoughts are linear and logical. No evidence of psychosis. Reviewed daily check in sheet and no reports of suicidal ideations or intent. Client Response/Progress/Benefit: [] Pt was an active participant in group discussion. Daily symptom tracker notes 4/5 for agitation and 3/5 for anxiety, worry, and hopelessness. Identified mental health wins as following through with phone interview Tuesday. Feels that the interview went well and she is proud of herself for how she managed the interview as well as her negative thoughts prior to and after. Feels that she is improviing her ability to manage negative thoughts and ruminations. States I didn't wake up this morning wishing I was which was the first time in several months. Insight into how this is significant progress. Progress noted per pt report. Will continue in IOP to maintain safety, prevent decompensation, and increase thought stopping.challenging skills. Narrative Note: []
--- NOTE | 2019-12-12 10:15 | BH.SGPN.GN ---
Behaviors/Verbalizations/Mental Status: [] Eye contact is good. Motor activity is appropriate. Appearance is casual. Speech is Appropriate. Mood is depressed. Affect is flat. Thoughts are linear and logical. No evidence of psychosis. Client Response/Progress/Benefit: [] Active participant in group discussions. Attentive during psycho-education. Worked with peers to provide input on definition of social stigma and discussed some common stigma associated with mental health which included; laziness, labeled as crazy, attention-seeking, lying, making excuses, they belong locked up, and they are unstable. Group also discussed the impact of this stigma which includes; making them feel less than others, causes more depression, leads to isolation, reinforces negative beliefs, and often they believe the labels placed on them. Group also identified ways that they reinforce mental health stigmas by; making jokes about it, not standing up for themselves, and by minimizes their symptoms. Benefited from group though increased insight and awareness on mental health stigma and its impact. Will continue in IOP to maintain safety, prevent decompensation, and improve daily functioning. Narrative Note: []
--- NOTE | 2019-12-12 10:15 | BH.SGPN.GN ---
Behaviors/Verbalizations/Mental Status: []Pt eye contact good, casually dressed, motor activity appropriate, speech normal rate and tone, mood euthymic, congruent affect, thoughts linear and intact, no evidence of delusions or hallucinations. Client Response/Progress/Benefit: []Client responded well to session, engaged in activity and actively listening as well as providing input to discussion. Engaged in activity about facts and statistics of mental illness. Group connected with the mental health statistics, recognizing the prevalence of mental health. Group brainstormed strategies to combat social and perceived stigma which included: educating others, no longer using negative labels about mental illness, being open about mental health, and not using deflection like humor or joking to minimize symptoms. Client stated she tends to use humor as a way to deflect how she is really feeling. Client reported she will practice using less deflection by being honest with others how she is feeling in an effort to reduce social and perceived mental health stigma. Appeared to benefit from increasing awareness of strategies to combat stigma. Will continue IOP tx to increase utilization of healthy coping skills, challenge distorted thoughts, and prevent decompensation. Narrative Note: []
--- NOTE | 2019-12-13 10:09 | BH.SGPN.GN ---
Behaviors/Verbalizations/Mental Status: []Client alert and oriented, casually dressed and groomed. Eye contact fair to good. Motor activity appropriate. Speech within normal limits. Affect congruent, mood euthymic. Thoughts linear, logical, no signs of hallucinations or delusions. Client Response/Progress/Benefit: []Client responded well to session, attentive though a mostly passive participant throughout. Participated in group discussion to define and identify differences between internal and external conflict. Client reported ?not addressing things and pushing them down has led to her being taken advantage of n the past?. Client shared that anxiety and fear of retaliation has led to avoiding conflicts in the past. Provided personal example. Group reported the benefits of addressing conflict include personal growth, increased trust, safety, having needs be met, and preventing further consequences. Group identified and discussed consequences of not addressing conflict in healthy ways which included: decreased trust, damaged relationships, increased mental health symptoms, and additional conflict. Benefited as client was able to identify and define conflict as well as increase awareness of how conflict style impacts her mental health. Noted it has negatively impacted self-esteem and resulted in feeling invalidated in the past. Progress noted as shown by client?s report of improved ability to follow through with thought challenging, reduced depression, and increased engagement. Will continue IOP tx to promote insight and application of healthy skills, reduce mental health sx severity, and further improve daily functioning. Narrative Note: []
--- NOTE | 2019-12-13 15:49 | BH.TPR ---
Treatment Plan Review Date of Treatment Plan Review:: 12/13/19
--- NOTE | 2019-12-13 20:52 | BH.MDN ---
Multi-Disciplinary Note - Note 60-min Individual Date: 12/13/19
--- NOTE | 2019-12-18 09:06 | BH.SGPN.GN ---
Behaviors/Verbalizations/Mental Status: []Eye contact is good. Motor activity is appropriate. Appearance is casual. Speech is Appropriate. Mood is dysthymic. Affect is congruent. Thoughts are linear and logical. No evidence of psychosis. Reviewed daily check in sheet and no reports of suicidal ideations or intent. Client Response/Progress/Benefit: []Pt was an active participant in group discussion. Pt shared that her current mood as ?content? and noted this is due to improved ability to cope with ongoing work related stress. 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 Additionally noted utilizing supports within the work environment which she reports has been helpful. Pt identified current mental health ?wins? as challenging herself to say ?no? to someone who asked her for money. Expressed this is a positive as she would usually not set the boundary and continue to lend money she does not have. Shared this as an empowering experience. Noted additional win as coping with not getting the job she had interviewed for and focusing on the positives rather than engaging in negative self-talk when reflecting on the experience. This is indicative of progress in ability to challenge negative self-talk.. Benefited from group support, encouragement, and feedback. Will continue in IOP to prevent decompensation, stabilize mood, and improve daily functioning. Narrative Note: []
--- NOTE | 2019-12-18 10:15 | BH.SGPN.GN ---
Behaviors/Verbalizations/Mental Status: []Pt eye contact good, casually dressed, motor activity appropriate, speech normal rate and tone, mood euthymic, congruent affect, thoughts linear and intact, no evidence of delusions or hallucinations. Client Response/Progress/Benefit: []Client was an active participant in group activity and provided input to discussion. Client connected with the topic of obstacles and solutions and worked with group to identify common internal and external barriers that keep people stuck. Group identified; low motivation, not having skill set, learned behavior, hopelessness, and negative thinking as potential internal barriers that could prevent progress towards a better quality of life. Client shared current reality as feeling she is starting to see progress and feel more content with life. However, client stated she is also cautious, anxious about the future and getting used to putting herself first. Client's realistic, desired reality to be feel increased optimism, positive view of self, not getting stuck in the negativity, and helping others. Benefited from group as client was able to identify current and desired mental health state and increase awareness of how barriers can impact progress. Will continue IOP tx to continue use of healthy coping, challenge distorted thoughts, and prevent decompensation. Narrative Note: []
--- NOTE | 2019-12-18 11:20 | BH.SGPN.GN ---
Behaviors/Verbalizations/Mental Status: [] Eye contact is good. Motor activity is appropriate. Appearance is casual. Speech is Appropriate. Mood is euthymic. Affect is flat. Thoughts are linear and logical. No evidence of psychosis. Client Response/Progress/Benefit: [] Pt participated at times during the group discussion. Engaged in group activity. Pt was able to identify barriers to reaching her desired reality which included; avoidance, fear, self-loathing, apathy, and low motivation. During the activity group worked together to developed strategies to overcome commonly reported obstacles such as; Hopelessness, Lack of motivation, Isolation, Self-Loathing, Apathy, Fear of Failure, Avoidance, and Toxic Relationships. Pt benefited from identifying obstacles in the way of her desired reality as well as strategies to overcome those obstacles. Will continue in IOP to maintain safety, prevent decompensation, and maintain gains. Narrative Note: []
--- NOTE | 2019-12-19 09:05 | BH.SGPN.GN ---
Behaviors/Verbalizations/Mental Status: [] Eye contact is good. Motor activity is appropriate. Appearance is casual. Speech is Appropriate. Mood is depressed. Affect is flat. Thoughts are linear and logical. No evidence of psychosis. Reviewed daily check in sheet and pt reports 1/5 for suicidal thoughts and 0/5 for intent. This is baseline. Client Response/Progress/Benefit: [] Pt was an active participant in group discussion. Emotion for today is content. She shared with the group an event that occurred yesterday in which I almost . She had almost gotten into a car accident. She has been reviewing this event and her reaction to this event. She states that she really had no reaction which was somewhat concerning for her. Group normalized this reactions and gave examples of how everyone responds to crisis and life-threatening events differently. Despite her check-in of 1/5 for suicidal thoughts pt stated I woke up again this morning and didn't want to which she reports is progress. Progress noted per pt report. Will continue in IOP to maintain safety, increase healthy coping, and decrease negative thinking. Narrative Note: []
--- NOTE | 2019-12-19 09:43 | PCM.BH.PN ---
Progress Note Progress Note: History of Present Illness/Interim History: [] Patient is a 29-year-old single female who is seen in follow-up for depression and anxiety at the [facility] behavioral health IOP program. Patient was last seen approximately 2 weeks ago and at that time we made the decision to start weaning the Paxil and changing over to Zoloft. The patient had decreased her Paxil to 10 mg and started Zoloft 50 mg p.o. daily. She has been tolerating the acid changer and medication quite well. She denies any symptoms of withdrawal and denies any side effects from the Zoloft. She states that she remains pretty severely depressed but is maybe slightly better. She notices that it is easier for her to get up in the morning and slightly easier to get motivated to get up in the morning. Her sleep is much better and she is keeping more regular sleep-wake hours even on the weekends. Her passive suicidal ideation is much rarer now and it is fleeting suicidal thoughts only quite rarely now. She denies active suicidal ideation, HI, hallucinations or delusions. She continues to worry somewhat about money and is still looking for a new job. She still does endorse worthlessness and occasional hopelessness. She says she is using even less alcohol than she was before with only occasional use. Current Psychiatric Medications: [] Paxil 10 mg p.o. daily (x2 weeks); Zoloft 50 mg p.o. daily (x2 weeks) Mental Status Examination: [] Patient is a 29-year-old female who appears normal for stated age and is casually dressed and groomed with good hygiene. She has good eye contact and her speech is normal rate and rhythm with no pressure. She has no psychomotor agitation or retardation. She is cooperative and mildly pleasant during the interview. Her mood remains depressed. Her affect is constricted. Thought processes are goal-directed and organized. Thought content: Fleeting passive suicidal ideation only. No evidence of active suicidal ideation or plan. No evidence of homicidal ideation, hallucinations or delusions. Judgment is intact. Insight: Good. Impulsivity: Low. 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 as the structure, education, support, group and individual therapy is benefiting her and preventing her symptoms from worsening. The risk, possible complications, side effects of the medications were discussed with the patient and she understands and accepts these. The patient felt safe during the interview and if at any time she does not feel safe she will let us know or go to the emergency room. The patient request to discontinue the Paxil now as she may be discharged from the IOP in 1 to 2 weeks and wishes to discontinue the Paxil when she is still able to see me. So the patient plans to discontinue the Paxil when she increases her Zoloft in the next few days. She understands if withdrawal symptoms occur and are severe she will restart the Paxil at 10 mg p.o. daily. She will increase her Zoloft to 100 mg p.o. daily and a prescription was given for this #30 with no refills. She understands that she will follow-up with her primary care provider for medication management after discharge from this IOP program and she is encouraged to make an appointment. I will see the patient in 1 week.
--- NOTE | 2019-12-20 09:10 | BH.SGPN.GN ---
Behaviors/Verbalizations/Mental Status: [] Eye contact is good. Motor activity is appropriate. Appearance is neat. Speech is Appropriate. Mood is anxious. Affect is congruent. Thoughts are linear and logical. No evidence of psychosis. Reviewed daily check in sheet and no reports of suicidal ideations or intent. Client Response/Progress/Benefit: [] Pt was an active participant in group discussion. Emotion for today is content. Daily symptoms tracker notes 3/5 for hopelessness and 2/5 for anxiety. Shared with the group that she had an individual session last night with her therapist. Reports that it was a positive session as she shared her progress and lack of suicidal thoughts for the past week. Shared with the group that she is not over-analyzing as much as she used too. Learning to accept herself and her emotions without asking why. Its OK not to know the answer to every question. Not feeding into her negative thoughts. Progress noted per pt report. Will continue in IOP to maintain gains. Narrative Note: []
--- NOTE | 2019-12-20 10:13 | BH.SGPN.GN ---
Behaviors/Verbalizations/Mental Status: []Client alert and oriented, casually dressed and groomed. Eye contact good. Motor activity appropriate. Speech within normal limits. Affect constricted, mood dysthymic. Thoughts linear, logical, no signs of hallucinations or delusions. Client Response/Progress/Benefit: []Client receptive of session, attentive in discussion and activity. Client discussed the quote and provided input that ?managing emotions means we communicate and don?t just shut down?. Discussed impact of shutting down on increasing emotion dysregulation and impacting relationships. Client helped group identify barriers that impact one?s ability to communicate when emotions are high. These barriers included; increased stress, fear of confrontation or conflict, making assumptions, and distorted thoughts. Expressed that unmanaged emotions can make someone shut down. Client participated in the activity and did well to manage emotions throughout. Client appeared to benefit from increasing awareness of how emotions can impact communication and practicing in the moment coping skills. Progress noted as client has been demonstrating improved engagement and reports improved mood; however, continues to struggle with application of thought challenging and disqualifying positives. Will continue IOP tx to further increase emotion regulation, improve coping and communication, and improve daily functioning. Narrative Note: []
--- NOTE | 2019-12-20 11:14 | BH.SGPN.GN ---
Behaviors/Verbalizations/Mental Status: []Eye contact is good. Motor activity is appropriate. Appearance is casual. Speech is Appropriate. Mood is dysthymic. Affect is congruent. Thoughts are linear and logical. No evidence of psychosis. Client Response/Progress/Benefit: []Pt did well to actively participate in group activity, as well as provided input during discussion. Pt worked with group members to identify connections between activity and strategies for overcoming barriers to making mental health changes. Pt noted that lack of self-awareness and low motivation, as well as distorted thoughts can be a barrier to ?turning over a new leaf? in her personal life. Pt did well to identify a specific change she would like to make for her mental health, barriers to making that change, and a SMART goal to reach that change. Shared she would like to work on improving ability to set firm boundaries with herself by reducing procrastination. Discussed that this change would help to increase self-worth, improve motivation, and increase ability to make progress with mental health. Pt benefited from working with group to identify strategies to overcome barriers to change and create a plan for implementing one small change promoting personal growth. Pt recommended to continue IOP tx to increase effective communication with supports, improve ability to maintain boundaries, and prevent decompensation. Narrative Note: []
--- NOTE | 2019-12-20 11:15 | BH.SGPN.GN ---
Behaviors/Verbalizations/Mental Status: []Client alert and oriented, casually dressed and fair grooming. Eye contact good. Motor activity appropriate. Speech within normal limits. Affect congruent to topic being discussed, mood euthymic. Thoughts linear, logical, no signs of hallucinations or delusions. Client Response/Progress/Benefit: []Client engaged in session AEB client listening attentively to peer and providing input at times during session. Attentive during psychoeducation on 4 zones of regulation. Client able to identify how she feels in each zone as well as how she acts in each zone. Client able to identify what behaviors she exhibits when in the different emotional zones. Group identified coping skills can use to support self in each zone which included: doing something enjoy, being social, journaling, opposite action, self-care, and self-talk. Client stated she is most often in a low state of alertness or a heightened state of alertness. Client stated she will focus on utilizing goal setting as a way to stay focused and motivated. Benefited from increased education on zones of regulation or stages of alertness for emotions and healthy coping skills to use for each zone. Will continue IOP tx to maintain gains, continue to challenge distorted thoughts and prevent decompensation. Narrative Note: []
--- NOTE | 2019-12-20 20:12 | BH.MDN_ITS ---
Multi-Disciplinary Note - Note 45-min Individual Time Started:: 08:20 Date: 12/20/19 Purpose of session/treatment goals addressed:: Purpose of session was to assess pt's current symptoms and stressors. Other topics included: identifying progress, challenging all or nothing thoughts, and reviewing aftercare plan. Eye Contact:: Good Motor Activity:: Appropriate Appearance:: Casual Speech:: Appropriate Mood:: Euthymic Affect:: Congruent Thoughts:: Linear, Logical, No evidence of hallucinations/delusions noted Staff Interventions:: Therapist used open ended questions to elicit pt's current symptoms and stressors. Therapist elicited pt's progress in the past week. Therapist assisted pt with challenging all or nothing thinking. Therapist reviewed aftercare plan for post discharge from [facility] next week. Client Response:: Pt reported she is feeling content this morning. Pt stated yesterday was a good day. Pt stated overall she has been feeling more stable and positive. Pt reported earlier in the week she had a couple of bad days. Pt elaborated she had bad days because she felt lonely when home when others have a life. With assistance pt recognized she did have many positive moments during the days she had deemed to be bad. Pt stated she struggles with feeling like others have lives and she just works and goes home. With help pt able to realize she has the choice to engage in more activities like going to a book club or joining a class. Pt stated she also has been struggling with on one hand feeling like she hates herself and other moments feeling like he knows better than everyone else. With help pt connected with need for perfection and if can't live up to those expectations then hates herself. Pt reported she recognizes importance of challenging her all or nothing distorted thought patterns. Pt reported for aftercare post discharge from [facility] she plans to continue outpatient counselor with Lorraine Anderson and go to primary care doctor for medication management. Risks/Concerns:: Denies current suicidal ideation, plan or intention to date. Progress Toward Goals/Plan:: Progress noted with pt reported no suicidal ideation in over a week, increased positive thought patterns, improved use of healthy coping skills, and increased self-confidence. Pt to continue IOP tocontinue use of healthy coping skills, challenge distorted thoughts and prevent decompensation. Time Stopped:: 09:05
--- NOTE | 2019-12-25 09:06 | BH.SGPN.GN ---
Behaviors/Verbalizations/Mental Status: []Eye contact is good. Motor activity is appropriate. Appearance is casual. Speech is Appropriate. Mood is dysthymic and anxious. Affect is congruent. Thoughts are linear and logical. No evidence of psychosis. Reviewed daily check in sheet and no reports of suicidal ideations or intent. Client Response/Progress/Benefit: []Pt was an active participant in group discussion. Described current mood as ?confused? and noted this is due to struggling with self-awareness regarding her own emotions. Indicated doing well but also being anxious about work and therefore is confused about current emotional state. Pt identified current mental health ?wins? as challenging herself to maintain calm in work environment and focus on what was in her control in a situation in which she disagreed with her boss? approach. Noted additional win as continuing to use thought challenging skills at night and finds it has been helpful in reducing the intensity and duration of self-deprecating thoughts. Stressor noted as ongoing concern regarding current nationwide pandemic, COVID-19. Appeared to benefit from the support of the group and focusing on that which is within her control. Benefited from group support, encouragement, and feedback. Will continue in IOP to prevent decompensation, stabilize mood, and improve daily functioning. Narrative Note: []
--- NOTE | 2019-12-25 10:10 | BH.SGPN.GN ---
Behaviors/Verbalizations/Mental Status: []Client alert and oriented, casually dressed and groomed. Eye contact good. Motor activity appropriate. Speech within normal limits. Affect congruent, mood euthymic/anxious. Thoughts linear, logical, no signs of hallucinations or delusions. Client Response/Progress/Benefit: []Client responded well to session, participating in group discussion and activity. Attentive during psychoeducation and commenting on the quote. Client we underestimate ourselves all the time, but it's proven we can change. Group identified the benefits of change which included: personal growth, better relationships, improved mental health, increased confidence, and better coping skills. Worked with the group to identify barriers to change, which included: growing up with unhealthy coping skills, fear of embarrassment, fear of the unknown, fear of hurting others, comfort, and what if thinking. Client reported she has also feared success which has been a barrier for change. Client participated along with group in activity where they identified and discussed the emotions related to change. Client was attentive during psychoeducation on the change process. Benefited from increased awareness and understanding of emotions, benefits, and barriers related to change. Will continue IOP tx to promote gains and reinforce healthy coping skills. Narrative Note: []
--- NOTE | 2019-12-25 11:17 | BH.SGPN.GN ---
Behaviors/Verbalizations/Mental Status: []Client alert and oriented, casually dressed and groomed. Eye contact good. Motor activity appropriate. Speech within normal limits. Affect congruent, mood euthymic. Thoughts linear, logical, no signs of hallucinations or delusions. Client Response/Progress/Benefit: []Client was an active participant AEB client providing input during discussion and listening to peers attentively. Client engaged during discussion on weighing the pros and cons associated with change and benefited from learning to do so through use of decisional balance sheet. Identified she wants to create a home gym as the change she wants to make to improve her mental health. Client able to identify the pros of drawing daily which included: improved health, increase self-esteem, and play with dogs more. Identified cons of not creating a home gym include: staying stuck, mental health worsens, decrease in self-esteem, increase in self-hate, and decrease in physical health. Client stated she knows creating a home gym is worth it, but still unsure if completely motivated to follow through. Appeared to benefit from gaining awareness of the pros and cons associated with changing her coping skills. Recommended continued IOP tx to continue use of healthy coping, challenge distortions, and prevent decompensation. Narrative Note: []
--- NOTE | 2019-12-26 10:14 | BH.SGPN.GN ---
Behaviors/Verbalizations/Mental Status: []Client alert and oriented, casually dressed and groomed. Eye contact good. Motor activity appropriate. Speech within normal limits. Affect congruent, mood euthymic. Thoughts linear, logical, no signs of hallucinations or delusions. Client Response/Progress/Benefit: []Client was an engaged participant AEB client providing input during discussion and listened attentively to others. Client connected with discussion on different types of anxiety, as well as the difference between ?normal? anxiety and anxiety disorders. Client gained awareness of personal physical symptoms of anxiety which included: fatigue, dizziness, tight chest, increased heart rate, sweaty palms, upset stomach, clenched jaw, and shaking leg. Client identified thoughts she has that can increase anxiety include: This will never go away and Im overreacting. Client appeared to benefit from gaining insight to physical signs of anxiety and how thoughts can increase anxiety. Will continue IOP to maintain gains, continue use of healthy coping skills and prevent decompensation. Narrative Note: []
--- NOTE | 2019-12-26 11:13 | BH.SGPN.GN ---
Behaviors/Verbalizations/Mental Status: []Client alert and oriented, casual in appearance. Eye contact fair to good. Motor activity appropriate. Speech within normal limits. Affect congruent, mood anxious and dysthymic. Thoughts linear, logical, no signs of hallucinations or delusions. Client Response/Progress/Benefit: []Pt active participant and providing input to discussion, listened attentively to others and taking notes throughout. More reserved than usual and indicated this is due to anxiety about today being her last day in the IOP program. Pt able to connect with the discussion reviewing three categories of skills for managing anxiety which included mind-based, body-based, and self-soothing. Contributed ideas and taking notes as group brainstormed various skills within the different categories. Pt did well to identify a skill she is willing to practice in the area of body-based mindfulness which included increasing self-awareness via regular body-scans. Pt seemed to benefit from increased awareness of healthy skills to manage anxiety related symptoms and in identifying skills willing to practice outside treatment environment. Progress noted with increased thought challenging and reduce reports of depression. Client to discharge on this date and will continue with outpatient counseling to maintain gains and continue to reduce depressive sx. Narrative Note: []
--- NOTE | 2019-12-26 11:33 | BH.DS ---
Discharge Summary - Demographics Date of Admission:: 11/12/19 Discharge Date: 12/26/19 Presenting Problems at Admission:: Pt referred to Intensive Outpatient Program due to worsening depressive symptoms, suicidal thoughts and limited progress in outpatient therapy. At admission pt endorsed decreased energy, decreased concentration, worthlessness, hopelessness, increased sleep, crying and anhedonia. Passive thoughts of reported at admission. 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 No longer meets criteria for IOP level of care. - Treatment Progress During Treatment & Response: Pt has made signficiant treatment progress with decreased depression, decreased suicidal thoughts, and decreaed anxiety as indicated on pt's self-report scores on DSM 5 cross-cutting measure. Pt's scores at discharge indicate a 43% reduction in depressive symptoms, a 100% reduction in suicidal thoughts, and 50% reduction in anxiety. Pt responded well to program AEB pt contributing during discussion and participating in activity. Pt did struggle with consistently utilizing skills outside treatment environment. Issues Still to be Addressed:: Pt could benefit from continued focus on identifying and challenging distorted and negative thoughts. Pt seems to struggle with adjusting to having a stable mood because reports she is used to be depressed. This sometimes results in pt looking for the negatives to experience comfort of depressed mood. Pt could benefit from increasing positive supports and finding extracurricular activities that she can engage in. Discharge Recommendations/Instructions:: 1. Lorraine Anderson ? January 18. 2. Remember to schedule with primary care doctor for medication management. Discharge Handout: Complete Discharge Handout with client on aftercare options and continuity of care.
--- NOTE | 2019-12-26 12:28 | PCM.BH.PN_ITS ---
Progress Note Progress Note: History of Present Illness/Interim History: [] Patient is a 29-year-old single female who is seen in follow-up for depression and anxiety at the [facility] behavioral health IOP program. The patient was last seen 1 week ago and at that time she increased her Zoloft to 100 mg p.o. daily and she stopped her Paxil. She had been on the Paxil for 9-1/2 years so we expected possibly some withdrawal symptoms. The patient has had some headaches but other than that she has tolerated stopping the Paxil quite well. She states that her mood also seems better and is much easier to get up now in the morning and be motivated. She feels she is really benefited from the IOP program and her last day is today. She is currently working from home due to the coronavirus scare and she is enjoying working from home. She denies any suicidal or homicidal ideation and denies any passive thoughts of . Her sleep remains improved. Current Psychiatric Medications: [] Zoloft 100 mg p.o. daily (x1 week now); Paxil DC'd 1 week ago Mental Status Examination: [] Patient is a 29-year-old single female who is casually dressed and groomed with good hygiene. She has no psychomotor agitation or retardation. She has good eye contact. Speech is normal rate and rhythm and fluent with no pressure. Her mood is euthymic today and her affect is full and normal. Thought process is goal-directed and organized. Thought content: No evidence of suicidal or homicidal ideation. No evidence of hallucinations or delusions. Patient is hopeful for the future. Impulsivity: Low. Judgment: Intact. Insight: Good. Diagnoses: [] [place] I: [] Major depressive disorder recurrent moderate F 33.1; generalized anxiety disorder [place] II: [] Cluster B and avoidant traits (mild) [place] III: [] Migraine headaches [place] IV:[]]work and primary support issues Plan: [] The patient will be discharged from the IOP program today. She will follow-up with her outpatient psychiatric and medical providers as scheduled. She felt safe during the interview and if at any time she does not feel safe she will let us know or go to the emergency room. The risk, options, and possible complications or side effects of the medications were again discussed with the patient and she understands and accepts these. A refill was given on her Zoloft 100 mg 30 days with 1 refill.
--- NOTE | 2019-12-26 13:41 | BH.AFTERPLAN ---
Aftercare Plan - Demographics Treatment End Date:: 12/26/19 Psychiatrist:: Lorraine Kapoor Psychiatrist Office #:: [phone] [facility]/IOP Therapist:: Mariana Connor Therapist Phone #:: [phone] - Medications Home Medications: Home Medications Aliaxin 1 tab PO DAILY 11/14/19 Divalproex Sodium 500 mg PO DAILY 11/14/19 Rizatriptan Benzoate [Rizatriptan] 10 mg PO PRN PRN 11/14/19 Topiramate 25 mg PO BID 11/14/19 Sertraline HCl [Zoloft] 100 mg PO DAILY 30 Days #30 tab 12/26/19 - Plan Details Progress/Aftercare Plan Details:: Pt has made signficiant treatment progress with decreased depression, decreased suicidal thoughts, and decreaed anxiety as indicated on pt's self-report scores on DSM 5 cross-cutting measure. Pt's scores at discharge indicate a 43% reduction in depressive symptoms, a 100% reduction in suicidal thoughts, and 50% reduction in anxiety. Strategies for Success:: 1.Win tracking ? remember to intentionally focus on the positives throughout the day, helps challenge negative thoughts of having a ?bad day?. 2.Remember a thought is just a thought, not a fact. 3.Continue to catch distortions and challenge ? look for evidence against the thought. 4.Exercise! 5.Opposite action ? if you wait until you feel better to do anything, you will wait a long time. 6.Consistency of using skills is marina! 7.Self-compassion - Appointments Appointments/Referrals to Other Services:: 1.L[facility] Anderson ? January 18. 2.Remember to schedule with primary care doctor for medication management.
--- NOTE | 2019-12-26 13:44 | BH.MDN_ITS ---
Multi-Disciplinary Note - Note 45-min Individual Time Started:: 09:20 Date: 12/26/19 Purpose of session/treatment goals addressed:: Purpose of session was to identify IOP treatment progress, identify strategies to help maintain progress and review aftercare details. Eye Contact:: Good Motor Activity:: Appropriate Appearance:: Casual Speech:: Appropriate Mood:: Euthymic, Anxious Affect:: Congruent Thoughts:: Linear, Logical, No evidence of hallucinations/delusions noted Staff Interventions:: Therapist used open ended questions to elicit pt's thoughts about treatment progress since starting IOP. Therapist challenged pt's perspective about making limited progress, helping pt note progress. Therapist collaborated with pt to identify skills and strategies that can help her maintain progress. Therapist provided support by active listening and validating emotions. Client Response:: Pt reported she is feeling a little sad about discharging from the program today. Pt stated she has really enjoyed having support from [facility]. Pt identified her biggest progress is not having suicidal thoughts anymore. Pt stated she still will experience a passing suicidal thought, but quickly an squash the thought and give the thought no value. Pt initially struggled with identifying any other progress. With help pt able to note that she has progressed with being able to catch myself before spiraling into a deeper depression. Pt able to identify progress with identifying good and bad moments versus labeling an entire day either good or bad. Pt identified strategies to help her maintain progress to include: Win tracking, remember a thought is just a thought, challenge distortions, opposite action, exercise, consistently using skills, and self-compassion. Pt to follow up with current outpatient counselor Lorraine Anderson and go to primary care doctor for medication management. Risks/Concerns:: denies suicidal thoughts, plan or intention to date. Progress Toward Goals/Plan:: Pt has made signficiant treatment progress with decreased depression, decreased suicidal thoughts, and decreaed anxiety as indicated on pt's self-report scores on DSM 5 cross-cutting measure. Pt's scores at discharge indicate a 43% reduction in depressive symptoms, a 100% reduction in suicidal thoughts, and 50% reduction in anxiety. Pt is to discharge from [facility] today. Time Stopped:: 09:58
== END 2020-01-08 23:59 ==
LOC: BHIOP 09:00
PROVIDERS: PCP Preventive Medicine Occupational Medicine; Referring Provider Psychiatry & Neurology Psychiatry; Visit Provider Psychiatry & Neurology Psychiatry
DX: F33.1 Major depressive disorder, recurrent, moderate (principal); F41.1 Generalized anxiety disorder; Z79.899 Other long term (current) drug therapy; G43.909 Migraine, unspecified, not intractable, without status migrainosus
CPT/HCPCS: H0035; 90834; 90837; 90853

== ENCOUNTER 2021-01-14 13:44 | Outpatient (RCR) | payer BC, SELFPAY | END 2021-03-17 23:59 | LOC: IMMUN 13:44 | PROVIDERS: PCP Preventive Medicine Occupational Medicine; Visit Provider Family Medicine | DX: Z23 Encounter for immunization (principal) | CPT/HCPCS: 0001A; 0002A; 91300 ==

== ENCOUNTER → 2024-09-12 | Outpatient (CLI) | payer BC, SELFPAY ==
--- NOTE | 2024-09-12 08:53 | RAD_ITS ---
PROCEDURE: Fluoroscopic guided right hip arthrogram. DATE: September 12, 2024. INDICATION: Female, 33 years old. Right hip pain. Possible labral tear. PHYSICIAN: Weston Kirby M.D. ACCESS SITE: Right hip hip. NEEDLE: 22-gauge spinal needle. FLUOROSCOPY TIME (if supplied): (1:06) minutes/seconds. 19.8 mGy. One image was submitted. FINDINGS: The risks, benefits, and alternatives to the procedure were explained to the patient. The specific risks of bleeding, infection, and neurovascular injury were detailed and accepted. Witnessed informed consent was obtained. A 22-gauge spinal needle was positioned under radiographic fluoroscopic localization. Approximately 2 cc of Isovue-300 instilled for localization purposes. Following this, 10 cc of dilute MRI contrast was injected for MRI examination. The patient tolerated the procedure well without any immediate complications. RAD/Arthrogram Hip w/ MRI IMPRESSION: 1. Successful fluoroscopic guided right hip arthrogram for MRI examination. Electronically Signed: Weston Kirby MD at 10:09 EST ,
--- NOTE | 2024-09-12 08:57 | MRI_ITS ---
STUDY: MRI ARTHROGRAM OF THE RIGHT HIP REASON FOR EXAM: Female, 33 years old. PAIN, JOINT DISORDER, R/O LABRAL TEAR -- ARTHROGRAM TECHNIQUE: 10 mL of dilute intra-articular arthrogram solution was injected into the right hip joint. MRI was obtained in all 3 orthogonal planes. COMPARISON: None. FINDINGS: There is a suspected small tear of the right anterior acetabular labrum (sagittal T1 series 6 image 9; MILTON T1 series 9 image 9). Intact right hip joint without articular joint space narrowing. Normal acetabulum. Normal femoral head. Normal femoral neck and intratrochanteric region. There is no demonstrated fracture. Normal gluteus minimus, medius and iliopsoas tendons and distal insertions. There is no trochanteric, iliopsoas or iliopectineal bursitis. Normal superior and inferior pubic rami. Normal pubic symphysis. Normal ischial tuberosity. Normal origin of the hamstring tendons. Normal visualized right iliac wing. Normal visualized soft tissue structures of the pelvis. MRI/Lower Ext/Jt Only/W Contrast IMPRESSION: Suspected small tear of the right anterior acetabular labrum. Electronically Signed: Bucky James MD at 9:56 EST ,
[2024-09-12] MEDS: Lidocaine 2% (5ml sdv) 5 ML VIAL.MPF INFILT (09:35)
[2024-09-12] MEDS: Iopamidol 10 ML in Syringe 1 EACH 600 ML INTRAARTIC (09:35)
== END | disposition home or self-care (01) ==
LOC: RAD 08:51
PROVIDERS: PCP Preventive Medicine Occupational Medicine; Referring Provider Physician Assistant Surgical; Visit Provider Physician Assistant Surgical
DX: M25.851 Other specified joint disorders, right hip (principal); M25.551 Pain in right hip
CPT/HCPCS: 27093; 73722; 77002; Q9967